=== PATIENT | female | born 1955 | race Caucasian/White ===

== ENCOUNTER 2022-09-29 14:48 | Outpatient (CLI) | payer MEDICARE, OTHER, SELFPAY ==
--- NOTE | 2022-09-29 15:00 | CRLHL7_ITS ---
For Patients: As a result of the Century Cures Act, medical imaging exams and procedure reports are released immediately into your electronic medical record. You may view this report before your referring provider. If you have questions, please contact your health care provider. INDICATION: ?OVARIAN CANCER, BLOATING COMPARISON: none TECHNIQUE: 2D luna scale and color Doppler images were acquired of the pelvis using a transabdominal and transvaginal approach. FINDINGS: Sonographic images demonstrate a normal size and smooth outer contour of the uterus. Uterus measures 5.0 cm in length by 1.7 cm in AP diameter by 2.9 cm in transverse dimension. The myometrium has a normal uniform echotexture. The endometrium measures 2.5 millimeters in thickness. Moderate fluid within the endometrial canal is noted. There is an echogenic nodular focus within the endometrium measuring 2 x 2 x 2 millimeters. The right ovary measures 2.1 x 1.1 x 1.1 cm in size and the left ovary measures 1.4 x 0.9 x 1.1 cm. The ovaries demonstrate normal arterial and venous blood flow on color Doppler analysis. There are no suspicious fluid collections within the cul-de-sac. Hypoechoic cyst is present within the right ovary measuring 1.6 x 1.1 x 1.2 cm. IMPRESSION: Moderate fluid in the endometrial canal with possible endometrial polyp measuring 2 millimeters. Hypoechoic right ovarian cyst measuring 1.6 cm. Further evaluation could include MRI with and without contrast or follow-up sonogram in 1 year. Dictated by Mike Dawson MD @ 10/02/2022 11:04:02 AM (Electronically Signed)
== END 2022-09-29 14:49 | disposition home or self-care (01) ==
LOC: US 14:55
PROVIDERS: PCP Nurse Practitioner Family; Visit Provider Nurse Practitioner Family
DX: R14.0 Abdominal distension (gaseous) (principal); N83.201 Unspecified ovarian cyst, right side
CPT/HCPCS: 76830; 76856

== ENCOUNTER 2022-10-04 17:03 | Emergency (ER) | payer MEDICARE, OTHER, SELFPAY ==
[2022-10-04] VITALS (10 sets, daily range): BP systolic 144–173; BP diastolic 83–96; PULSE 68–117; RESP 18; TEMP 36.4; O2SAT 97–99; BMI 26.8
[2022-10-04 17:36] LABS: Appearance Urine Clear (Clear); Bilirubin Urine Negative (Negative); Blood Urine Negative (Negative); Color Urine Yellow (Yellow); Glucose Urine Negative (Negative); Ketones Urine 1+ (Negative); Leukocyte Esterase Urine Negative (Negative); Nitrite Urine Negative (Negative); Protein Urine Negative (Negative); Urobilinogen Urine 0.2 (0.2-1.0)
--- NOTE | 2022-10-04 18:22 | ED_ITS ---
HPI - General Adult General Time Seen by Provider: 18:22 Date Seen: 10/04/22 Chief complaint: Back Injury/Pain Stated complaint: Back Pain,Possible Kidney Stone Time Seen by Provider: 10/04/22 18:22 Source: patient and RN notes reviewed Mode of arrival: ambulatory Limitations: no limitations History of Present Illness HPI narrative: Patient is a 67-year-old female coming in with some right-sided back pain that is been present for about 2 days. She had some tramadol that was prescribed to her at a visit in the beginning September. She went in for abdominal bloating, had an abnormal pelvic ultrasound showing a right ovarian cyst and fluid in the endometrial canal. She also had some left hip pain at that time which she relates to injuring it while lifting her 17-year-old dog that fell and could not get back up. This is not bothering her anymore. She states this right-sided pain feels reminiscent of a kidney stone years ago. She has had a history kidney stones, required 2 surgeries, states they could not do it with lithotripsy. She has been bothered by abdominal bloating that is progressively worse. Denies any nausea vomiting diarrhea or change in bowels. There is a strong history of ovarian cancer in her family. 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 She states she completed treatment and was told it resolved. No fevers or chills. Related Data Previous Rx's Medication Instructions Recorded tramadol 100 mg tablet 100 mg PO BID PRN pain #14 tabs 10/02/22 Allergies Allergy/AdvReac Type Severity Reaction Status Date / Time iodine Allergy Unknown Unknown Verified 10/04/22 19:01 Review of Systems Status of ROS: Reports: 10 or more systems reviewed and unremarkable except as noted in History and below [facility] Medical History (Updated 10/04/22 @ 20:07 by Sarah Prakash MD) History of abnormal cervical Papanicolaou smear (1989) History of basal cell carcinoma (BCC) (1989) History of colonic polyps History of compression fracture of spine History of depression History of hepatitis B virus infection (1975) History of stress test (09/11/20) Surgical History (Updated 09/24/22 @ 09:59 by Juliette Mas) History of basal cell carcinoma (BCC) excision (1989) History of carpal tunnel surgery of left wrist (1989) History of throat surgery (1957) Family History (Updated 09/24/22 @ 10:05 by Juliette Mas) Family/Other Colon cancer Social History (Updated 09/24/22 @ 10:06 by Juliette Mas) Narrative: Significant other, no children 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 smoker Rarely consumes alcohol Smoking Status: Never smoker How often do you have a drink containing alcohol: monthly or less How often do you have six or more drinks on one occasion: Never AUDIT-C Alcohol total score: 1 Non-prescribed substance use: denies use Exam Const: Vital Signs, click to edit/add: Vital Signs - 24 hr 10/04/22 17:17 10/04/22 19:07 10/04/22 19:10 Temperature 97.5 F L Pulse Rate 83 92 Pulse Rate [Right Pulse Oximeter] 117 H Respiratory Rate 18 Blood Pressure 155/87 H Blood Pressure [Ri ght Upper Arm] 173/96 H Pulse Oximetry 97 98 97 Oxygen Delivery Me thod Room Air 10/04/22 19:30 10/04/22 19:32 Temperature Pulse Rate 73 81 Pulse Rate [Right Pulse Oximeter] Respiratory Rate Blood Pressure 157/83 H Blood Pressure [Ri ght Upper Arm] Pulse Oximetry 98 98 Oxygen Delivery Me thod Documenting provider has reviewed patient's vital signs: yes Common normals: no apparent distress, average body habitus, oriented x3, no limitations, healthy appearing, alert and well nourished General appearance: cooperative, comfortable, well kempt and well developed HENMT: Common normals: normocephalic, head/scalp atraumatic, hearing grossly normal bilaterally and external ears normal Head and scalp: normocephalic and atraumatic External ear: external ears normal Eye: Common normals: PERRL, EOMs intact bilaterally, conjunctivae normal and no scleral icterus Conjunctiva: conjunctiva(e) normal Pupil: PERRL Neck & C-Spine: Common normals: full ROM, no lymphadenopathy, supple, no meningeal signs, no JVD and thyroid normal Thyroid: thyroid normal Resp: Common normals: normal respiratory effort (Mild kyphosis), no retractions, no use of accessory muscles and clear to auscultation bilaterally Effort & inspection: able to speak in complete sentences Auscultation: clear to auscultation bilaterally Cardio: Common normals: no JVD, regular rate, regular rhythm, S1 normal heart sound, S2 normal heart sound, no gallops, no clicks and no murmurs Rate: regular rate Rhythm: regular rhythm Heart sounds: S1 normal and S2 normal GI: Common normals: Normal to inspection, nondistended, normoactive bowel sounds present, soft to palpation, no hepatosplenomegaly and no masses Palpation: soft and no hepatosplenomegaly Other: Has some right mid abdominal tenderness to the right lower quadrant/pelvic region. No rebound or guarding at this time. Do not appreciate a mass just on palpation. Back & Pelvis: Common normals: thoracic and lumbar spine normal to inspection and no thoracic nor lumbar tenderness Other: On palpation of her back mid lumbar region on the right side there is a little tenderness when I palpate in the back below the ribs but above the iliac crest. It is more over a muscular area. Extremity: Other: No calf tenderness, no lower extremity edema. Neuro: Common normals: oriented x3 Sensorium/orientation: alert Meningeal signs: no meningeal signs Psych: Appearance: well kempt Course Course Hospital Course: We will obtain labs including comprehensive metabolic panel inflammatory markers, CBC. We will proceed with CT abdomen pelvis with IV contrast given her right-sided abdominal pain on my examination and the abnormal ultrasound findings done recently. I worry that this is intra-abdominal pathology. Doubt she has a surgical abdomen at this time but the CT and the labs will help us further delineate this. I think her right-sided back pain may just represent referred pain from something potentially abnormal with the pelvic organs. Will await our labs and imaging and guide therapy accordingly. Patient declines any need for pain management at this time. Reevaluation(s) Reevaluation #1: Reviewed findings on her CT report. We did discuss that this did not find anything with the pelvic organs but does not mean that she should proceed with getting the MRI of her pelvis for further evaluation of that. Reviewed the CT scan is not as sensitive for pelvic organs as the ultrasound, thus the need to continue for follow-up of that. Reviewed her normal labs. This time were going to discharge to home, try her on MiraLax, follow up in clinic to review possible motility issues of her GI system. Signs and symptoms for return to the ED reviewed. Time: 20:14 Vital Signs Vital signs: Initial Vital Signs Temperature 97.5 F L 10/04/22 17:17 Temperature Source Temporal Artery Scan 10/04/22 17:17 Pulse Rate 117 H 10/04/22 17:17 Respiratory Rate 18 10/04/22 17:17 Blood Pressure 173/96 H 10/04/22 17:17 Blood Pressure Mean 121 10/04/22 17:17 Blood Pressure Position Sitting 10/04/22 17:17 Pulse Oximetry 97 10/04/22 17:17 Oxygen Delivery Method 10/04/22 17:17 Vital Signs Temperature 97.5 F L 10/04/22 17:17 Pulse Rate 117 H 10/04/22 17:17 Respiratory Rate 18 10/04/22 17:17 Blood Pressure 173/96 H 10/04/22 17:17 Pulse Oximetry 97 10/04/22 17:17 Oxygen Delivery Method 10/04/22 17:17 Temperature 97.5 F L 10/04/22 17:17 Pulse Rate 81 10/04/22 19:32 Respiratory Rate 18 10/04/22 17:17 Blood Pressure 157/83 H 10/04/22 19:32 Pulse Oximetry 98 10/04/22 19:32 Oxygen Delivery Method 10/04/22 17:17 Medical Decision Making Lab Data Lab results reviewed: Yes I reviewed the patient's lab results Labs: Lab Results 10/04/22 10/04/22 10/04/22 Range/Units 17:27 18:45 18:45 WBC 6.09 (4.50-11.00) K/uL RBC 4.98 (4.00-5.20) m/uL Hgb 14.8 (12.0-16.0) gm/dL Hct 44.9 (33.0-51.0) % MCV 90 (80-100) fL MCH 30 (26-34) pg MCHC 33 (32-36) gm/dL RDW Coeff of Xi 12.8 (11.5-15.5) % Plt Count 300 (140-440) K/uL Neut % (Auto) 50.6 (42.0-72.0) % Lymph % (Auto) 35.6 (20-44) % [facility] % (Auto) 10.5 (0.0-11.0) % Eos % (Auto) 2.8 (0.0-7.0) % Baso % (Auto) 0.3 (0.0-3.0) % Neut # (Auto) 3.08 (1.7-7.0) K/uL Lymph # (Auto) 2.17 (0.90-2.90) K/uL [facility] # (Auto) 0.60 (0.00-0.90) K/UL Eos # (Auto) 0.17 (0.00-0.50) K/uL Baso # (Auto) 0.02 (0.00-0.30) K/uL Abs Immat Gran (auto) 0.01 (0.00-0.30) K/uL Imm/Tot Granulo (auto) 0.2 % Sodium 138 (135-149) mmol/L Potassium 4.0 (3.6-5.1) mmol/L Chloride 103 (96-114) mmol/L Carbon Dioxide 26 (20-32) mmol/L BUN 10 (7-30) mg/dL Creatinine 0.6 (0.5-1.5) mg/dL Estimated Creat Clear 39.75 Estimated GFR 99 ml/min Glucose 150 H (60-115) mg/dL Calcium 9.6 (8.4-10.6) mg/dL Total Bilirubin 0.5 (0.1-1.5) mg/dL AST 23 (12-35) U/L ALT 19 (4-35) U/L Alkaline Phosphatase 91 (40-150) U/L C-Reactive Protein < 0.5 L (0.5-1.0) mg/dL Total Protein 6.9 (6.0-8.3) g/dL Albumin 4.6 (3.3-5.0) g/dL Urine Color Yellow (Yellow) Urine Appearance Clear (Clear) Urine pH 7.0 (5.0-8.5) Ur Specific Franklin 1.020 (1.000-1.030) Urine Protein Negative (Negative) Urine Glucose (UA) Negative (Negative) Urine Ketones 1+ A (Negative) Urine Blood Negative (Negative) Urine Nitrite Negative (Negative) Urine Bilirubin Negative (Negative) Urine Urobilinogen 0.2 (0.2-1.0) Ur Leukocyte Esterase Negative (Negative) POC Creatinine (0.6-1.3) mg/dl 10/04/22 Range/Units 19:03 WBC (4.50-11.00) K/uL RBC (4.00-5.20) m/uL Hgb (12.0-16.0) gm/dL Hct (33.0-51.0) % MCV (80-100) fL MCH (26-34) pg MCHC (32-36) gm/dL RDW Coeff of Xi (11.5-15.5) % Plt Count (140-440) K/uL Neut % (Auto) (42.0-72.0) % Lymph % (Auto) (20-44) % [facility] % (Auto) (0.0-11.0) % Eos % (Auto) (0.0-7.0) % Baso % (Auto) (0.0-3.0) % Neut # (Auto) (1.7-7.0) K/uL Lymph # (Auto) (0.90-2.90) K/uL [facility] # (Auto) (0.00-0.90) K/UL Eos # (Auto) (0.00-0.50) K/uL Baso # (Auto) (0.00-0.30) K/uL Abs Immat Gran (auto) (0.00-0.30) K/uL Imm/Tot Granulo (auto) % Sodium (135-149) mmol/L Potassium (3.6-5.1) mmol/L Chloride (96-114) mmol/L Carbon Dioxide (20-32) mmol/L BUN (7-30) mg/dL Creatinine (0.5-1.5) mg/dL Estimated Creat Clear Estimated GFR ml/min Glucose (60-115) mg/dL Calcium (8.4-10.6) mg/dL Total Bilirubin (0.1-1.5) mg/dL AST (12-35) U/L ALT (4-35) U/L Alkaline Phosphatase (40-150) U/L C-Reactive Protein (0.5-1.0) mg/dL Total Protein (6.0-8.3) g/dL Albumin (3.3-5.0) g/dL Urine Color (Yellow) Urine Appearance (Clear) Urine pH (5.0-8.5) Ur Specific Franklin (1.000-1.030) Urine Protein (Negative) Urine Glucose (UA) (Negative) Urine Ketones (Negative) Urine Blood (Negative) Urine Nitrite (Negative) Urine Bilirubin (Negative) Urine Urobilinogen (0.2-1.0) Ur Leukocyte Esterase (Negative) POC Creatinine 0.7 (0.6-1.3) mg/dl Imaging Data CT scan - abdomen: Attestation: I have reviewed the pertinent imaging results. Radiologist's impression: Patient: DARIANA COLIN Facility:?[facility] Patient ID:?[id number] Site Patient ID:?[id number]. Site :?[id number] Study:?CT Abdomen/Pelvis W/ 67CC [id number]/2022 7:04:17 PM Ordering Physician:Doe Smith Final Report: INDICATION: Abdominal pain. TECHNIQUE: CT abdomen and pelvis acquired with intravenous contrast, 67 mL of Isovue 370. Coronal and sagittal reformats. COMPARISON: Pelvic ultrasound 09/29/2022. FINDINGS: The imaged lower chest is unremarkable. Normal liver contour. No suspicious hepatic lesion. The portal and hepatic veins are patent. No biliary dilatation. The gallbladder, pancreas, spleen, and adrenals are unremarkable. Symmetrical renal enhancement. No hydronephrosis bilaterally. Unremarkable bladder. Mild colonic diverticulosis without evidence of acute diverticulitis. Extensive colonic stool. Nondilated small bowel. Fecalized contents within the distal small bowel. No free air, free fluid, focal collection, or lymphadenopathy. Normal caliber abdominal aorta with mild atherosclerotic calcification. Diffuse demineralization. Mild L1 concave superior endplate deformity. IMPRESSION: 1. No acute or suspicious findings. 2. Extensive colonic stool with distal small bowel fecalization, suggesting hypomotility. Dictated by Jarvis Hammer MD @ 10/04/2022 8:00:47 PM Please note that all CT scans at this facility use dose modulation, iterative reconstruction, and/or weight-based dosing when appropriate to reduce radiation dose to as low as reasonably achievable. Dictated by: Jarvis Hammer MD @ 10/04/2022 20:00:49 (Electronic Signature) Critical Care Time Critical Care Time Critical Care Time: No Discharge Plan Discharge Clinical Impression: Bloated abdomen Patient Disposition: Home, Self-Care Condition: Stable Instructions: Constipation (ED) Additional Instructions: Need to follow up in clinic next week for re-evaluation. Your CT scan suggests that the bowel may have a motility problem which could be causing some constipation. This certainly could make you feel bloated. I am going to have you try MiraLax to start with, 17 g daily. This is sold [id number]. We can see how you are doing with this starting medication. You may need other workup and further evaluation, this is not something we would further workup in the ER tonight. If you do develop severe abdominal pain, have any associated fever vomiting with severe abdominal pain, do recommend re-evaluation in the ED. Activity Level: Activity as Tolerated Prescriptions: No Action tramadol 100 mg tablet 100 mg PO BID PRN (Reason: pain) Qty: 14 0RF Follow Up/Referrals: Rachael Bower TELEVISION REPAIRER [Primary Care Provider] - Stand Alone Forms: [employer] Info Instructions
--- NOTE | 2022-10-04 18:36 | CRLHL7_ITS ---
For Patients: As a result of the Century Cures Act, medical imaging exams and procedure reports are released immediately into your electronic medical record. You may view this report before your referring provider. If you have questions, please contact your health care provider. INDICATION: Abdominal pain. TECHNIQUE: CT abdomen and pelvis acquired with intravenous contrast, 67 mL of Isovue 370. Coronal and sagittal reformats. COMPARISON: Pelvic ultrasound 09/29/2022. FINDINGS: The imaged lower chest is unremarkable. Normal liver contour. No suspicious hepatic lesion. The portal and hepatic veins are patent. No biliary dilatation. The gallbladder, pancreas, spleen, and adrenals are unremarkable. Symmetrical renal enhancement. No hydronephrosis bilaterally. Unremarkable bladder. Mild colonic diverticulosis without evidence of acute diverticulitis. Extensive colonic stool. Nondilated small bowel. Fecalized contents within the distal small bowel. No free air, free fluid, focal collection, or lymphadenopathy. Normal caliber abdominal aorta with mild atherosclerotic calcification. Diffuse demineralization. Mild L1 concave superior endplate deformity. IMPRESSION: 1. No acute or suspicious findings. 2. Extensive colonic stool with distal small bowel fecalization, suggesting hypomotility. Dictated by Jarvis Hammer MD @ 10/04/2022 8:00:47 PM Please note that all CT scans at this facility use dose modulation, iterative reconstruction, and/or weight-based dosing when appropriate to reduce radiation dose to as low as reasonably achievable. Dictated by: Jarvis Hammer MD @ 10/04/2022 20:00:49 (Electronically Signed)
[2022-10-04 19:04] LABS: Creatinine, Point-of-Care* 0.7 mg/dl (0.6-1.3)
[2022-10-04 19:05] LABS: Basophils Absolute Auto 0.02 K/uL (0.00-0.30); Basophils Percent Auto 0.3 % (0.0-3.0); Eosinophils Absolute Auto 0.17 K/uL (0.00-0.50); Eosinophils Percent Auto 2.8 % (0.0-7.0); Hematocrit 44.9 % (33.0-51.0); Hemoglobin* 14.8 gm/dL (12.0-16.0); Immature Granulocytes Abs Auto 0.01 K/uL (0.00-0.30); Immature Granulocytes Pct Auto 0.2 %; Lymphocytes Absolute Auto 2.17 K/uL (0.90-2.90); Lymphocytes Percent Auto 35.6 % (20-44); Mean Corpuscular HGB Conc 33 gm/dL (32-36); Mean Corpuscular Hemoglobin 30 pg (26-34); Mean Corpuscular Volume 90 fL (80-100); Monocytes Percent Auto 10.5 % (0.0-11.0); Neutrophils Absolute Auto 3.08 K/uL (1.7-7.0); Neutrophils Percent Auto 50.6 % (42.0-72.0); Platelet Count* 300 K/uL (140-440); RDW Coefficient of Variation % 12.8 % (11.5-15.5); Red Blood Count 4.98 m/uL (4.00-5.20); White Blood Count* 6.09 K/uL (4.50-11.00)
[2022-10-04 19:06] LABS: Slide Review Reflex No
[2022-10-04 19:18] LABS: Albumin* 4.6 g/dL (3.3-5.0); Chloride* 103 mmol/L (96-114)
[2022-10-04 19:19] LABS: Sodium* 138 mmol/L (135-149)
[2022-10-04 19:21] LABS: Aspartate Amino Transferase* 23 U/L (12-35); Bilirubin Total* 0.5 mg/dL (0.1-1.5); Carbon Dioxide* 26 mmol/L (20-32); Creatinine* 0.6 mg/dL (0.5-1.5); Est. Creatinine Clearance* 39.75; Estimated Glomerular Filt Rate 99 ml/min; Total Protein* 6.9 g/dL (6.0-8.3)
[2022-10-04 19:22] LABS: Alanine Aminotransferase* 19 U/L (4-35); Alkaline Phosphatase* 91 U/L (40-150); Blood Urea Nitrogen* 10 mg/dL (7-30); Calcium* 9.6 mg/dL (8.4-10.6); Glucose* 150 mg/dL (60-115)
[2022-10-04 19:28] LABS: C Reactive Protein* < 0.5 mg/dL (0.5-1.0)
== END 2022-10-04 20:39 | disposition home or self-care (01) ==
PROVIDERS: Emergency Provider Family Medicine; PCP Nurse Practitioner Family
DX: R14.0 Abdominal distension (gaseous) (principal); K59.00 Constipation, unspecified; R79.89 Other specified abnormal findings of blood chemistry
CPT/HCPCS: 36415; 74177; 80053; 81003; 82565; 85025; 86140; 99284; Q9967

== ENCOUNTER 2022-10-15 12:40 | Outpatient (CLI) | payer MEDICARE, OTHER, SELFPAY ==
--- NOTE | 2022-10-15 13:00 | CRLHL7_ITS ---
For Patients: As a result of the Century Cures Act, medical imaging exams and procedure reports are released immediately into your electronic medical record. You may view this report before your referring provider. If you have questions, please contact your health care provider. Indication: Abnormal pelvic ultrasound. Hypoechoic lesion in the right ovary measuring 16 millimeters. Fluid within the endometrial canal, with a questionable endometrial polyp measuring 2 mm. Technique: MRI of the pelvis without and with intravenous gadolinium. Three plane localizer, 3 plane SSFP, axial T1 weighted, axial T2 weighted with fat suppression, axial sagittal T2 weighted haste, axial T2 weighted with fat suppression, sagittal T2 weighted with fat suppression, and 3 plane pre and post contrast T1 weighted fat-suppressed VIBE pulse sequences were obtained. 15 cc of IV dotarem. Comparison: Pelvic ultrasound, 09/29/2022. CT of the abdomen and pelvis, 10/04/2022. Findings: There is no adnexal mass. There is no free fluid in the pelvis, pelvic sidewall or inguinal lymphadenopathy, or evidence for carcinomatosis. The left ovary measures 16 x 11 millimeters, image 14, series 8. The right ovary is seen best on image 10, series 9, measuring 18 millimeters in AP dimension, and 2 centimeters in craniocaudad dimension. It is also seen on image 17 of series 8. No endometrial or myometrial masses visualized. Urinary bladder is normal. There is no mucosal hyper enhancement or mural stratification within the small bowel or colon. Normal marrow signal intensity. Ventral wall abdominal or umbilical hernia containing fat. No evidence for enteric compromise. Impression: 1. No adnexal mass. 2. Filling defect in the endometrial canal on the recent pelvic ultrasound is not well seen by MRI. Does the patient have a history of postmenopausal bleeding? 3. There is no pelvic lymphadenopathy, ascites, or evidence on MRI for carcinomatosis. Dictated by Uri Dunacn MD @ 10/17/2022 1:40:40 PM (Electronically Signed)
== END 2022-10-15 12:41 | disposition home or self-care (01) ==
LOC: MRI 12:41
PROVIDERS: PCP Nurse Practitioner Family; Visit Provider Nurse Practitioner Family
DX: N94.9 Unspecified condition associated with female genital organs and menstrual cycle (principal)
CPT/HCPCS: 72197; A9575

== ENCOUNTER 2022-11-08 15:03 | Emergency (ER) | payer MEDICARE, OTHER, SELFPAY ==
[2022-11-08 15:12] VITALS: BP 161/103; PULSE 92; RESP 18; TEMP 36.2; O2SAT 97; BMI 26.0
--- NOTE | 2022-11-08 15:24 | CRLHL7_ITS ---
For Patients: As a result of the Century Cures Act, medical imaging exams and procedure reports are released immediately into your electronic medical record. You may view this report before your referring provider. If you have questions, please contact your health care provider. Indication: Constipation. Technique: Abdomen 3 view. Comparison: Lumbar radiographs November 06, 2022 and pelvic MRI and abdominal CT of September 2022. Findings: Non-obstructive bowel gas pattern where visualized. Moderate volume colonic stool. No free air. No abnormal abdominal calcifications. Curvature of the lumbar spine, convex to the right. Compression fracture of the L1 vertebral body. Likely height loss of the T12 vertebral body. Impression: Nonobstructive bowel gas pattern. Moderate volume colonic stool. Dictated by Mike Anna MD @ 11/08/2022 3:55:15 PM (Electronically Signed)
--- NOTE | 2022-11-08 15:55 | ED_ITS ---
HPI - General Adult General Chief complaint: Constipation Stated complaint: Constipation Time Seen by Provider: 11/08/22 15:17 Source: patient Mode of arrival: ambulatory Limitations: no limitations History of Present Illness HPI narrative: 67-year-old female coming in today concerned about constipation. States that she has been having very tiny but soft bowel movements for about a month, however in the last 4 days she has had no stool output. She states that she feels very full and bloated. No fevers or chills. No nausea or vomiting. She states that she has very little during the day and that is not necessarily new for her, she does eat foods high are high in fiber such as fruits and vegetables. She does take MiraLax 1 scoop daily in the morning and herbal laxatives in the evening. She purchased an enema this morning but the nurse line told her she should come in for an evaluation so she did not use it. She is passing gas daily. She does have a prescription for tramadol for a recent L1 compression fracture however, she only took it twice and has not taken it since. Related Data Home Medications Medication Instructions Recorded Confirmed nino natural laxative DAILY 11/08/22 polyethylene glycol 3350 17 gram 17 g PO DAILY 11/08/22 11/08/22 oral powder packet (Miralax) Previous Rx's Medication Instructions Recorded tramadol 100 mg tablet 100 mg PO BID PRN pain #30 tabs 11/04/22 Allergies Allergy/AdvReac Type Severity Reaction Status Date / Time iodine Allergy Unknown Unknown Verified 10/04/22 19:01 Review of Systems Status of ROS: Reports: 10 or more systems reviewed and unremarkable except as noted in History and below [facility] Medical History History of abnormal cervical Papanicolaou smear (1989) History of basal cell carcinoma (BCC) (1989) History of colonic polyps History of compression fracture of spine History of depression History of hepatitis B virus infection (1975) History of stress test (09/11/20) Surgical History History of basal cell carcinoma (BCC) excision (1989) History of carpal tunnel surgery of left wrist (1989) History of throat surgery (1957) Family History Family/Other Colon cancer Social History Narrative: Significant other, no children 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 Alert and oriented. Answers questions appropriately. Mood and affect are appropriate. Patient speaks in full sentences without needing to catch her breath. HEENT: Normocephalic atraumatic. Pupils are equally round reactive to light. Extraocular muscles are intact. Conjunctivae are moist without any icterus noted. Moist mucous membranes. Abdomen: Soft and nontender nondistended with normal bowel sounds. No guarding or rebound. No masses or organomegaly appreciated. Extremities: Bilateral lower extremities are without edema. Skin: Well perfused without any obvious rashes. Const: Vital Signs, click to edit/add: Vital Signs - 24 hr 11/08/22 15:12 Temperature 97.1 F L Pulse Rate [Right Pulse Oximeter] 92 Respiratory Rate 18 Blood Pressure [Ri ght Upper Arm] 161/103 H Pulse Oximetry 97 Oxygen Delivery Me thod Room Air Course Course Hospital Course: Flat and upright abdominal x-ray were done, read by me, showing no evidence of obstruction. We discussed options including changing her oral regimen, however, patient really thinks that an enema done in the ER would be her best option she does not want to do that by herself at home. Fleets enema administered in the ER today with good results. Patient feeling better and requesting to go home. Vital Signs Vital signs: Initial Vital Signs Temperature 97.1 F L 11/08/22 15:12 Temperature Source Temporal Artery Scan 11/08/22 15:12 Pulse Rate 92 11/08/22 15:12 Respiratory Rate 18 11/08/22 15:12 Blood Pressure 161/103 H 11/08/22 15:12 Blood Pressure Mean 122 11/08/22 15:12 Blood Pressure Position Sitting 11/08/22 15:12 Pulse Oximetry 97 11/08/22 15:12 Oxygen Delivery Method 11/08/22 15:12 Vital Signs Temperature 97.1 F L 11/08/22 15:12 Pulse Rate 92 11/08/22 15:12 Respiratory Rate 18 11/08/22 15:12 Blood Pressure 161/103 H 11/08/22 15:12 Pulse Oximetry 97 11/08/22 15:12 Oxygen Delivery Method 11/08/22 15:12 Temperature 97.1 F L 11/08/22 15:12 Pulse Rate 92 11/08/22 15:12 Respiratory Rate 18 11/08/22 15:12 Blood Pressure 161/103 H 11/08/22 15:12 Pulse Oximetry 97 11/08/22 15:12 Oxygen Delivery Method 11/08/22 15:12 Medical Decision Making MDM Narrative Medical decision making narrative: Constipation status post treatment. Her recommend increasing MiraLax to 2 scoops daily. Adding docusate daily. Patient had no other questions Imaging Data Abdominal x-ray: Attestation: I have reviewed the pertinent imaging results. Radiologist's impression: Abdomen 3 view. Comparison: Lumbar radiographs November 06, 2022 and pelvic MRI and abdominal CT of September 2022. Findings: Non-obstructive bowel gas pattern where visualized. Moderate volume colonic stool. No free air. No abnormal abdominal calcifications. Curvature of the lumbar spine, convex to the right. Compression fracture of the L1 vertebral body. Likely height loss of the T12 vertebral body. Impression: Nonobstructive bowel gas pattern. Moderate volume colonic stool. Discharge Plan Discharge Clinical Impression: Constipation Patient Disposition: Home, Self-Care Condition: Improved Additional Instructions: Recommend increasing your MiraLax to 2 scoops daily until daily bowel movement achieved. Can also add 2 tablets of docusate daily-can be purchased [id number]. Increase fluid intake. Follow-up with your primary care provider as needed. Prescriptions: No Action polyethylene glycol 3350 [Miralax] 17 gram powder in packet 17 g PO DAILY nino natural laxative DAILY tramadol 100 mg tablet 100 mg PO BID PRN (Reason: pain) Qty: 30 0RF Follow Up/Referrals: Rachael Bower CNP [Primary Care Provider] - Stand Alone Forms: MyHealth Info Instructions
--- NOTE | 2022-11-08 16:12 | ED.NURSE ---
Fleet enema admin SC
== END 2022-11-08 17:05 | disposition home or self-care (01) ==
LOC: ED 17:04
PROVIDERS: Emergency Provider Family Medicine; PCP Nurse Practitioner Family
DX: K59.00 Constipation, unspecified (principal)
CPT/HCPCS: 74019; 99283; 99284

== ENCOUNTER 2023-01-14 10:45 | Outpatient (RCR) | payer MEDICARE, OTHER, SELFPAY ==
--- NOTE | 2022-10-02 12:04 | PT.OPEX ---
PT [place] Outpatient Eval PT [facility] Outpatient Eval Start: 10/02/22 10:02 Freq: Status: Active Protocol: Document 10/02/22 10:03 ARR (Rec: 10/02/22 11:16 ARR [id number]) E-signed By Alesia Crowley DPT Physical Therapy Outpatient Evaluation Insurance Information Recert Due Date 12/31/22 Insurance Name Medicare B Medical Diagnosis M25.552 pain in left hip Treating Diagnosis M51.26 lumbar disc displacement R26.2 difficulty walking M25.551 pain in R hip Referring MD Rachael Bower, [employer] MEMBER ([facility]) Subjective Subjective -Onset of pain 2 weeks ago doing side planks then something happened. Hasn't exercises in 2 weeks due to this pain. Then 1 week ag today dog passed and had to pick 50# dog and this made it worse. -Location of pain: R sided hip and middle low back area -Increases in pain: lifting R UE up overhead to pull a shade down, getting up from the toilet will feel a cramp, can' t sleep at night, standing upright -Decreases in pain: icy hot, laying flat on infrared pad then when trying to get up increases pain again, bending forward -Goals: return to exercise 6 days per week using Chromatin track 30-60 min, strength training 3x/wk, walking dog most days -PMHx: tachycardia, hearing loss, osteoporosis, basal cell carcinoma 1989, CTS L wrist, Notes fx of T9 and 10. Precautions Treatment Precautions/Contraindications Possible current ovarian CA Objective Other/Pertinent Objective Eval 10/02 Posture: loss of lumbar lordosis, inc'd TS kyhposis, slight R lateral shift, inc'd hip/foot ER on R Palpation: TTP into R LS paraspinals with allodynia SLS (30 sec): unable Gait: antalgic gait RANGE OF MOTION: Lumbar ROM: -Flx: fingertips to ankles no changes in pain -Ext: 75% limitation in movement with pain -R Rot: pain with 50% limitation -L Rot: no pain 25% limitation -R Sidebend: worst pain with 3 inches from jt line -L Sidebend: pain with 3 inches from jt line LE ROM (R/L): -Hip ER90: 70 L/60 R -Hip IR90: 10 L/R -Hip flex: >120 bilat -Hip ext sidelying : limited R / NT L STRENGTH: -Glut medius: 2+ R SPECIAL TESTS: LE Flexibility (R/L) -Hamstring: + bilat -Piriformis: + bilat -Rehan Test:+ R sidelying Hip (R/L): -DONNY: neg bilat -Hip Scour: neg bilat -FADIR: neg bilat Other: -CPA hypmobile L1-5 -Supine SLR neg bilat -Seated slump neg bilat Functional Test Performed & Score CONNER 27/50 Assessment Assessment/Impression Pt is a 67 yo female who presents with concerns of R sided low back pain. Signs and symptoms likely indicating / consistent with discogenic injury and underlying lumbar stenosis with R lateral shift and pain flares with all closing down movements of lumbar spine including extension, R lateral flexion, and R rotation. Patient also has notable objective findings including severe pain that limited tolerance for full completion of evaluation also likely contributing to the problem. Patient is a good candidate for skilled therapy to target deficits described above. Skilled PT intervention is necessary for use of therapeutic exercise manual therapy, neuromuscular re- education, gait training, and therapeutic activity. Functional impairments include difficulty with: sleeping at night, walking, standing. See appropriate sections of PT eval for complete list of goals and POC. D/C plan and criteria is for pt to achieve the goals as listed below or until max rehab potential is met. Pt was agreeable with plan of care and goals established. 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 3) Pt will report at least 80% improvement in pain/symptoms since start of PT for return to PLOF 4) Pt will demonstrate CONNER score <15/50 for return to PLOF 5) Pt will return to working out, use of nordic track, and walking without pain flare Treatment Plan/Direct Interventions Electrical Stimulation,Gait Training,Joint Mobilization, Manual Therapy,Neuromuscular Re-ed,Self-Care/Home Management,Therapeutic Activities,Therapeutic Exercises,Traction (Mechanical ),Ultrasound Frequency/Duration 2x/wk for total of 14 visits in 90 days Evaluation Billing Untimed Code Treatment Minutes 30 Complexity Moderate Certification Information Initial Certification Date 10/02/22 Ending Certification Date 12/31/22 Provider Signature Shows Agreement With POC & Medical Necessity Physician Signature & Date Requested Please Sign/Date Here Physician Comment/Change : Physician NPI Number #
== END 2023-01-14 12:05 | disposition home or self-care (01) ==
PROVIDERS: PCP Nurse Practitioner Family; Visit Provider Nurse Practitioner Family
DX: M25.552 Pain in left hip (principal); Z51.89 Encounter for other specified aftercare
CPT/HCPCS: 97032; 97110; 97112; 97140; 97162; 97535

== ENCOUNTER 2024-07-04 14:06 | Outpatient (CLI) | payer MEDICARE, OTHER, SELFPAY ==
--- OUTSIDE RECORDS SUMMARY | 2024-07-04 14:14 | XMS_ITS ---
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 Procedure Estimated Blood Loss Check Surgery Details section. Procedure Findings Check Surgery Details section. Procedure Specimens Taken Check Surgery Details section.
--- OUTSIDE RECORDS SUMMARY | 2024-07-04 14:14 | XMS_ITS | Referral Summary ---
Author Organization [facility] Address [address] [place] [address] Care Team Providers Care Sheet Metal Former Name Role Phone Elsewhere, Pcp Primary Care Provider Unavailabl e Source Comments Patient records contain information from all sites at [facility]. For routine questions regarding patient records, call [phone] during business hours, M-F 8:00 AM - 5:00 PM Central Time. Record requests for emergency care only can be directed to [phone] at any time.[facility] Allergies Active Allergy Reactions Criticality Noted Date Comments Iodine Itching 07/08/2021 Topical iodine only Medications Medication Sig Dispensed Refills Start Date End Date Status co-enzyme Q-10 (CO Q-10) 100 mg capsule Take 1 capsule by mouth daily. 10/05/2019 Active turmeric 400 mg capsule Take 1 capsule by mouth daily. 10/05/2019 Active metoprolol tartrate (LOPRESSOR) 25 mg tablet Take 25 mg by mouth 2 (two) times a day as needed. 02/28/2022 Active ascorbate calcium-bioflavonoid 500-200 mg tablet Take 1 tablet by mouth as needed. 10/05/2019 Active traMADoL (ULTRAM) 50 mg tablet Take 100 mg by mouth as needed. 10/02/2022 Active cyanocobalamin, vitamin B-12, (Vitamin B-12) 1,000 mcg/mL drops Take by mouth daily. Active cholecalciferol, vitamin D3, (VITAMIN D3 ORAL) Take by mouth daily. Liquid version Active zinc 10 mg/mL (elemental) oral solution Take 7.5 mL by mouth daily. Active aspirin [address] tablet Take 81 mg by mouth as needed for pain. Active pantoprazole (PROTONIX) 40 mg EC tabletIndications:Fat igue,Hypogammaglobuli nemia (HCC),Pain Generalized Abdominal,Osteoporosi s Take 1 tablet (40 mg total) by mouth daily. 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 Polyp Colon 07/23/2021 PreDiabetes 07/26/2020 Immunizations Name Administration Dates Next Due Influenza high dose QV(65 ye ars or older) (PF) 08/04/2022,08/01/2021 Influenza, Injectable, Mdck, Quadrivalent 08/23/2019 Influenza, Injectable, Quadrivalent 07/18/2020 Influenza, Unspecified 08/23/2019 PCV20 11/25/2022(Deferred: Other - would like to recieve) RZV (SHINGRIX) 11/25/2022(Deferred: Other - would like to recieve) Tdap 11/25/2022(Deferred: Other - up to date) Social History Tobacco Use Types Packs/Day Years Used Date Smoking Tobacco: Never Smokeless Tobacco: Never Tobacco Cessation:Counseling Given: Not Answered Alcohol Use Standard Drinks/Week Comments Not Currently 0 (1 standard drink = 0.6 oz pur e alcohol) Humiliation, Afraid, Rape, and Kick questionnair e Answer Date Recorded Within the last year, have y ou been afraid of your partner or ex-partner? No 11/25/2022 Within the last year, have y ou been humiliated or emotionally abused in other ways by your partner or ex-partner? No Within the last year, have y ou been kicked, hit, slapped, or otherwise physically hurt by your partner or ex-partner? No 11/25/2022 Within the last year, have y ou been raped or forced to have any kind of sexual activity by your partner or ex-partner? No 11/25/2022 Social Connection and Isolat ion Panel [NHANES] Answer Date Recorded In a typical week, how many times do you talk on the phone with family, friends, or neighbors? More than three times a week 11/25/2022 How often do you get togethe r with friends or relatives? Twice a week 11/25/2022 How often do you attend chur or pentecostal services? Never 11/25/2022 Do you belong to any clubs o r organizations such as mandaen groups, unions, fraternal or athletic groups, or school groups? Yes 11/25/2022 How often do you attend meet ings of the clubs or organizations you belong to? More than 4 times per year 11/25/2022 Are you , , di vorced, , never , or living with a partner? Living with partner 11/25/2022 AUDIT-C Answer Date Recorded Q1: How often do you have a drink containing alc ohol? Monthly or less 11/25/2022 Q2: How many drinks containi ng alcohol do you have on a typical day when you are drinking? 1 or 2 11/25/2022 Q3: How often do you have si x or more drinks on one occasion? Never 11/25/2022 Overall Financial Resource Strain (CARDIA) Answe r Date Recorded How hard is it for you to pa y for the very basics like food, housing, medical care, and heating? Not hard at all 11/25/2022 PHQ-2 Answer Date Recorded PHQ-2 Score 0 11/25/2022 [facility] - Occupational Stress Questionnaire Answer Date Recorded Do you feel stress - tense, restless, nervous, or anxious, or unable to sleep at night because your mind is troubled all the time - these days? Only a little 11/25/2022 Exercise Vital Sign Answer Date Recorde d On average, how many days pe r week do you engage in moderate to strenuous exercise (like a brisk walk)? 6 days 11/25/2022 On average, how many minutes do you engage in exercise at this level? 60 min 11/25/2022 Hunger Vital Sign Answer Date Recorded Within the past 12 months, y ou worried that your food would run out before you got the money to buy more. Never true 11/25/19 Within the past 12 months, t he food you bought just didn't last and you didn't have money to get more. Never true 11/25/2022 PRAPARE - Transportation Answer Date Re corded In the past 12 months, has l ack of transportation kept you from medical appointments or from getting medications? No 10/28 In the past 12 months, has l ack of transportation kept you from meetings, work, or from getting things needed for daily living? No 11/25/2022 Housing Stability Vital Sign Answer e Recorded In the last 12 months, was t here a time when you were not able to pay the mortgage or rent on time? No 11/25/2022 In the last 12 months, how many places have you lived? 1 11/25/2022 In the last 12 months, was t here a time when you did not have a steady place to sleep or slept in a detention (including now)? No 11/25/2022 Nutrition Answer Date Recorded Nutrition: EVOO Fat Source Yes 11/25 On average, how many serving s of fruits and vegetables do you eat per day (serving size is equal to 1 cup or approximately the size of a tennis ball)? 8 or more 11/25/2022 Dental Answer Date Recorded Dental: Regular Dentist Yes 11/04/19 Employment Answer Date Recorded Employment status Retired 11/25/2022 Education Answer Date Recorded What is the highest level of school you have completed or the highest degree you have received? Bachelor's degree (e.g., BA, AB, BS) 07/08/2021 Sex and Gender Information Value Date Recorded Sex Assigned at Female 07/08/2021 8:34 AM CDT Gender Identity Female 07/08/2021 8:34 AM CDT Sexual Orientation Straight 07/08/2021 8: 34 AM CDT Last Filed Vital Signs Vital Sign Reading Time Taken Comments Blood Pressure 154/78 01/16/2023 7:57 AM CDT Pulse 71 01/16/2023 7:57 AM CDT Temperature 36.4 ??C (97.5 ??F) 01/01/2023 9:28 AM CS T Respiratory Rate 13 11/26/2022 2:45 PM GUSSET RIPPER Oxygen Saturation 99% 11/26/2022 2:45 PM GUSSET RIPPER Inhaled Oxygen Concentration - - Weight 61.3 kg (135 lb 2.3 oz) 05/15/2023 12:55 PM CDT Height 150.9 cm (4' 11.41) 05/21/2023 2:18 PM C DT Body Mass Index 26.92 05/15/2023 12:55 PM CDT Plan of Treatment Upcoming Encounters Date Type Department Care Team (Latest Contact Info) Description 08/18/2024 2:00 PM CDT Clinical Communication Virtual Review in [place], [place] [address] [place] [phone] 08/19/2024 2:30 PM CDT Office Visit Division of Allergic Diseases in [place], [place] [address] [place] [phone] Flex Nettles M.D. [address] [place] [phone] Procedures Procedure Name Priority Date/Time Associated Diagnosis Comments COLONOSCOPY Routine 11/26/2022 12:41 PM GUSSET RIPPER Constipation Bloating Abdominal Change In Bowel Habit Screening Cancer Colon COMPREHENSIVE METABOLIC PANEL, S/P Routine 11/25/2022 10:26 AM GUSSET RIPPER Pain Generalized Abdominal Bloating Abdominal Osteoporosis Constipation Cancer Colon Family History Fatigue Loss Weight HCV AB SCRN W/REFLEX TO HCV PCR, S Routine 07/08/2021 10:37 AM CDT Hepatitis B from Last 3 Months or Most Recently Relevant to Health Maintenance Results * (ABNORMAL) Comprehensive Metabolic Panel (11/25/2022 10:26 AM GUSSET RIPPER) Potassium, S 4.3 3.6 - 5.2 mmol/L 11/25/2022 11:26 AM GUSSET RIPPER DTL Sodium, S 141 135 - 145 mmol/L 11/25/2022 11:26 AM GUSSET RIPPER DTL Chloride, S 104 98 - 107 mmol/L 11/25/2022 11:26 AM GUSSET RIPPER DTL Bicarbonate, S 26 22 - 29 mmol/L 11/25/2022 11:26 AM GUSSET RIPPER DTL Anion Gap 11 7 - 15 11/25/2022 11:26 AM GUSSET RIPPER DTL BUN (Blood Urea Nitrogen), S 10 6 - 21 mg/dL 11/25/2022 11:26 AM GUSSET RIPPER DTL Creatinine 0.66 0.59 - 1.04 mg/dL 11/25/2022 11:26 AM GUSSET RIPPER DTL Estimated GFR (eGFR) >90 >=60 mL/min/BS A 11/25/2022 11:26 AM GUSSET RIPPER DTL Comment: Estimated GFR calculated using the 2020 CKD_EPI creatinine equation. Calcium, Total, S 9.6 8.8 - 10.2 mg/dL 11/25/2022 11:26 AM GUSSET RIPPER DTL Glucose, S 92 70 - 140 mg/dL 11/25/2022 11:26 AM GUSSET RIPPER DTL Protein, Total, S 6.1(L) 6.3 - 7.9 g/dL 11/25/2022 11:26 AM GUSSET RIPPER DTL Albumin, S 4.4 3.5 - 5.0 g/dL 11/25/2022 11:26 AM GUSSET RIPPER DTL Aspartate Aminotransferase (AST), S 17 8 - 43 U/L 11/25/2022 11:26 AM GUSSET RIPPER DTL Alkaline Phosphatase, S 114(H) 35 - 104 U/L 11/25/2022 11:26 AM GUSSET RIPPER DTL Alanine Aminotransferase (ALT), S 12 7 - 45 U/L 11/25/2022 11:26 AM GUSSET RIPPER DTL Bilirubin, Total, S 0.8 <=1.2 mg/dL 11/25/2022 11:26 AM GUSSET RIPPER DTL Blood (Blood, Venous) 11/25/2022 10:26 AM GUSSET RIPPER 11/25/2022 11:06 AM GUSSET RIPPER Narrative Authorizing Provider Result Svitlana Camarena M.D. LAB BLOOD ADD-ON [facility] [address] [place] [address], [facility] DTL [facility] [address] [place] [address] * HCV Ab Scrn w/Reflex to HCV PCR, Serum (07/08/2021 10:37 AM CDT) HCV Ab Screen, S Negative Negative 07/08/2021 9:39 PM CDT [facility] Comment:Sfomap-yn-ibdtww rat io is <1.00. Blood (Blood, Venous) 07/08/2021 10:37 AM CDT 07/08/2021 2:56 PM CDT Cade Flores M.D. LAB MICROBIOLO GY - BLOOD ORDERABLES [facility] [address] [place] [address] [facility] Dept. of Laboratory Medicine and Pathology [address] [place] [id number] from Last 3 Months or Most Recently Relevant to Health Maintenance Advance Directives For more information, please contact: [phone] Documents on File Type Date Recorded Patient Induction Furnace Operator Expl anation Advance Directives 12/01/2022 10:57 AM Efrain Zhu HCPOA/ADVOCATE/AGENT/REP RESENTATIVE/SURROGATE Healthcare Agents on File Name Relationship Healthcare Agent Relationship Communication Efrainkrishan Cason Significant Other Health Care Agent Yarelis Zhu Sister First Alternate Health Care Agent Care Teams Sheet Metal Former Relationship Specialty Start Date End Date Elsewhere, Pcp PCP - General Internal Medicine 08/11/23
--- OUTSIDE RECORDS SUMMARY | 2024-07-04 14:14 | XMS_ITS | Clinical Summary ---
Author Organization [facility] Address [address] [place] [address] Care Team Providers Care Cash Applications Associate Name Role Phone Elsewhere, Pcp Primary Care Provider Unavailabl e Source Comments Patient records contain information from all sites at [facility]. For routine questions regarding patient records, call [phone] during business hours, M-F 8:00 AM - 5:00 PM Central Time. Record requests for emergency care only can be directed to [phone] at any time.[facility] Allergies Active Allergy Reactions Criticality Noted [...] Tdap 11/25/2022(Deferred: Other - up to date) Family History Medical History Relation Name Comments Colon cancer Brother 1 iza Colon polyps Brother 1 iza Colon polyps Brother 2 gene Lung cancer Brother 3 [facility] Pancreatic cancer Father li Colon polyps Sister 1 yarelis Colon polyps Sister 2 ani Relation Name Status Comments Brother 1 iza Brother 2 gene Brother 3 joon Father li Sister 1 yarelis Sister 2 ani Social History Tobacco Use Types Packs/Day Years [...] 11/25/2022 How often do you attend chur ch or advent services? Never 11/25/2022 Do you belong to any clubs o r organizations such as hinduism groups, unions, fraternal or athletic groups, or [...] Answer Date Recorded PHQ-2 Score 0 11/25/2022 [facility] [place] of Occupat ional Health - Occupational Stress [...] place to sleep or slept in a correction (including now)? No 11/25/2022 Nutrition Answer Date [...] T Respiratory Rate 13 11/26/2022 2:45 PM ARCHITECT NAVAL Oxygen Saturation 99% 11/26/2022 2:45 PM ARCHITECT NAVAL Inhaled Oxygen Concentration - - Weight 61.3 kg (135 lb 2.3 oz) 05/15/2023 12:55 PM CDT Height 150.9 cm (4' 11.41) 05/21/2023 2:18 PM C DT Body Mass Index 26.92 05/15/2023 12:55 PM CDT Plan of Treatment Upcoming Encounters Date Type Department Care Team (Latest Contact Info) Description 08/18/2024 2:00 PM CDT Clinical Communication Virtual Review in [place], [place] [address] [place] [phone] 08/19/2024 2:30 PM CDT Office Visit Division of Allergic Diseases in [place], [place] [address] [place] [phone] Flex Nettles M.D. [address] [place] [phone] Health Maintenance Due Date Last Done Comments CT Colonography 1955 Cologuard 1955 DTaP,Tdap,and Td Vaccines (1 - Tdap) 1975 Zoster Vaccines (1 of 2) 2006 Pneumococcal vaccine (65+ ye ars) (1 of 1 - PCV) 2021 Mammogram 05/21/2023 05/21/2022 (Perf ormed elsewhere) Depression Screening (Annual PHQ-2) 10/26/2023 Fall Risk Screen (Annual) 10/26/2023 Fasting Glucose for Diabetes Screening 11/25/2023 11/25/2022 COVID-19 Vaccine (2022-2 4 season) 2024 07/28/2023, 02/25/2023, 08/04/2022, Additional history exists Influenza Vaccine (#1) 2024 , 08/04/2022, 08/01/2021, Additional history exists Lipid (Cholesterol) Screening 09/16/2024 09/16/2023, 03/06/2022 Colonoscopy 11/26/2027 11/26/2022, 11/26/2022 Colorectal Cancer Surveillance 11/26/2027 Hepatitis C Screening Completed 07/08/2021 Bone Density Scan (Osteoporo sis Screen) Discontinued 11/25/2022 Procedures Procedure Name Priority Date/Time Associated Diagnosis Comments COLONOSCOPY Routine 11/26/2022 12:41 PM ARCHITECT NAVAL Constipation Bloating Abdominal Change In Bowel Habit Screening Cancer Colon COMPREHENSIVE METABOLIC PANEL, S/P Routine 11/25/2022 10:26 AM ARCHITECT NAVAL Pain Generalized Abdominal Bloating Abdominal Osteoporosis Constipation Cancer Colon Family History Fatigue Loss Weight HCV AB SCRN W/REFLEX TO HCV PCR, S Routine 07/08/2021 10:37 AM CDT Hepatitis B from Last 3 Months or Most Recently Relevant to Health Maintenance Results * (ABNORMAL) Comprehensive Metabolic Panel (11/25/2022 10:26 AM ARCHITECT NAVAL) Potassium, S 4.3 3.6 - 5.2 mmol/L 11/25/2022 11:26 AM ARCHITECT NAVAL DTL Sodium, S 141 135 - 145 mmol/L 11/25/2022 11:26 AM ARCHITECT NAVAL DTL Chloride, S 104 98 - 107 mmol/L 11/25/2022 11:26 AM ARCHITECT NAVAL DTL Bicarbonate, S 26 22 - 29 mmol/L 11/25/2022 11:26 AM ARCHITECT NAVAL DTL Anion Gap 11 7 - 15 11/25/2022 11:26 AM ARCHITECT NAVAL DTL BUN (Blood Urea Nitrogen), S 10 6 - 21 mg/dL 11/25/2022 11:26 AM ARCHITECT NAVAL DTL Creatinine 0.66 0.59 - 1.04 mg/dL 11/25/2022 11:26 AM ARCHITECT NAVAL DTL Estimated GFR (eGFR) >90 >=60 mL/min/BS A 11/25/2022 11:26 AM ARCHITECT [employer]AL DTL Comment: Estimated GFR calculated using the 2020 CKD_EPI creatinine equation. Calcium, Total, S 9.6 8.8 - 10.2 mg/dL 11/25/2022 11:26 AM ARCHITECT NAVAL DTL Glucose, S 92 70 - 140 mg/dL 11/25/2022 11:26 AM ARCHITECT NAVAL DTL Protein, Total, S 6.1(L) 6.3 - 7.9 g/dL 11/25/2022 11:26 AM ARCHITECT NAVAL DTL Albumin, S 4.4 3.5 - 5.0 g/dL 11/25/2022 11:26 AM ARCHITECT NAVAL DTL Aspartate Aminotransferase (AST), S 17 8 - 43 U/L 11/25/2022 11:26 AM ARCHITECT NAVAL DTL Alkaline Phosphatase, S 114(H) 35 - 104 U/L 11/25/2022 11:26 AM ARCHITECT NAVAL DTL Alanine Aminotransferase (ALT), S 12 7 - 45 U/L 11/25/2022 11:26 AM ARCHITECT NAVAL DTL Bilirubin, Total, S 0.8 <=1.2 mg/dL 11/25/2022 11:26 AM ARCHITECT NAVAL DTL Blood (Blood, Venous) 11/25/2022 10:26 AM ARCHITECT NAVAL 11/25/2022 11:06 AM ARCHITECT NAVAL Asael Camarena [place] [address], [place] [address] * HCV Ab Scrn w/Reflex to HCV PCR, Serum (07/08/2021 10:37 AM CDT) HCV Ab Screen, S Negative Negative 07/08/2021 9:39 PM CDT [facility] Comment:Ldanir-ew-ojujbf rat io is <1.00. Blood (Blood, Venous) 07/08/2021 10:37 AM CDT 07/08/2021 2:56 PM CDT Navine Nasser-Ghodsi M.D. LAB MICROBIOLO GY - BLOOD ORDERABLES [facility] [address] [place] [address] [facility] access hospital Dept. of Laboratory Medicine and Pathology [address] [place] [address] from Last 3 Months or Most Recently Relevant to Health Maintenance Advance Directives For more information, please contact: [phone] Documents on File Type Date Recorded Patient Final Rail Cutter Expl anation Advance Directives 12/01/2022 10:57 AM Efrain Zhu HCPOA/ADVOCATE/AGENT/REP RESENTATIVE/SURROGATE Healthcare Agents on File Name Relationship Healthcare Agent Relationship Communication Efrain Estraranza Significant Other Health Care Agent Yarelis Zhu Sister First Alternate Health Care Agent Care Teams Cash Applications Associate Relationship Specialty Start Date End Date Elsewhere, Pcp PCP - General Internal Medicine 08/11/23
--- OUTSIDE RECORDS SUMMARY | 2024-07-04 14:14 | XMS_ITS | Clinical Summary ---
Author Organization [employer] [facility] Address [place], [place] [address] Care Team Providers Care Gun Club Manager Name Role Phone Ml Mcintosh DO Primary Care Provider [phone] Allergies Active Allergy Reactions Criticality Noted Date Comments Tridell Itching 09/03/2023 Body itching and tongue tingly Milk GI Upset 09/03/2023 Any dairy Iodine Itching,Rash 01/08/2021 Topical iodine only Wheat GI Upset 09/03/2023 Medications Medication Sig Dispensed Refills Start Date End Date Status cholecalciferol, Vitamin D3, (VITAMIN D-3) 5,000 unit tab tablet Take 1 tablet by mouth once daily. 0 10/05/2019 Active turmeric 400 mg cap Take by mouth. 0 10/05/2019 A ctive Ascorbate Calcium-Bioflavonoid (RUKHSANA C WITH BIOFLAVONOIDS) 500-200 mg tab Take by mouth. 0 10/05/2019 Active zinc 50 mg tablet Take 1 Tablet (50 mg) by mouth once daily. 0 02/28/2022 Active cyanocobalamin (Vitamin B-12) 1,000 mcg tablet Take 1 Tablet (1,000 mcg) by mouth once daily. 0 02/28/2022 Active medication order composer Vegan EPA/DHA 0 02/28/2022 Active Active Problems Problem Noted Date Diagnosed Date Hyperlipidemia 09/06/2023 Hypogammaglobulinemia 09/06/2023 Overview (09/06/2023): Should avoid live vaccines White coat syndrome without hypertension 023 History of compression fracture of spine 019 Osteoporosis 10/05/2019 Hepatitis B 08/28/2017 Overview (08/28/2017): While in [employer] many years ago Resolved Problems Problem Noted Date Diagnosed Date Resolved Date Elevated blood pressure read ing without diagnosis of hypertension 09/06/2023 09/06/2023 Abnormal TSH 10/05/2019 09/06/2023 Hypothyroidism (acquired) 08/28/2017 Immunizations Name Administration Dates Next Due COVID-19 Vaccine Spikevax (M oderna 50mcg/0.5mL) 12YO+ [id number] Formula PF 07/28/2023 COVID-19 vaccine (Moderna 50 mcg/0.5mL) 12YO+ BIVALENT PF, MDV 02/25/2023,08/04/2022 Influenza Virus, Unspecified 08/23/2019 Influenza, High-dose Quadriv alent Inactivated 07/28/2023,08/04/2022,08/01/2021 Influenza, IIV4 (=>6mos) MDV 07/18/2020 Influenza, Injectable, Mdck, Quadrivalent, W/preservative 08/23/2019 Pneumococcal Conj 20-valent (Prevnar 20) 023 RSV, Recombinant ADJ Reconst ituted (Arexvy 120MCG/0.5mL) 08/20/2023 Family History Medical History Relation Name Comments Cancer-colon Brother Cancer-pancreatic Father Relation Name Status Comments Brother Father Social History Tobacco Use Types Packs/Day Years Used Date Smoking Tobacco: Never Smokeless Tobacco: Never Tobacco Cessation:Counseling Given: Yes Alcohol Use Standard Drinks/Week Comments Not Currently 0 (1 standard drink = 0.6 oz pur e alcohol) PHQ-2 Answer Date Recorded PHQ-2 TOTAL SCORE 1 09/03/2023 Social Connections Answer Date Recorded Frequency of Communication with Friends and Fami ly Not on file 01/03/2022 Sex and Gender Information Value Date Recorded Sex Assigned at Not on file Gender Identity Not on file Sexual Orientation Not on file Obstetrics History Para Term AB IAB SAB Ectopic Multiple Livin g Live Births 0 0 0 0 0 0 0 0 0 0 0 Last Filed Vital Signs Vital Sign Reading Time Taken Comments Blood Pressure 164/90 11/13/2023 11:03 AM CAREER TECHNICAL COUNSELOR Pulse 82 11/13/2023 11:03 AM CAREER TECHNICAL COUNSELOR Temperature 36.9 ??C (98.5 ??F) 08/28/2017 2:34 PM CD T Respiratory Rate - - Oxygen Saturation 100% 11/13/2023 11:03 AM CAREER TECHNICAL COUNSELOR Inhaled Oxygen Concentration - - Weight 62.6 kg (138 lb) 11/13/2023 11:03 AM CAREER TECHNICAL COUNSELOR Height 149.9 cm (4' 11) 09/03/2023 1:25 PM CAREER TECHNICAL COUNSELOR Body Mass Index 27.87 09/03/2023 1:25 PM CAREER TECHNICAL COUNSELOR Plan of Treatment Health Maintenance Due Date Last Done Comments Tdap 1967 Tetanus booster 1976 Zoster (shingles) series for age 50+ (1 of 2) 2006 COVID-19 vaccine series ( season) 2024 07/28/2023, 02/25/2023, 08/04/2022, Additional history exists Influenza for age 65+ 06/26/2024 07/28/2023 , 08/04/2022, 08/01/2021, Additional history exists BMI (ht and wt on same day) for age 18+ 09/03/2024 09/03/2023, 02/28/2022, 10/05/2019, Additional history exists Depression screening for age 12+ 09/03/2024 09/03/2023 Medicare Wellness for age 65+ 09/03/2024 09/03/2023 Mammogram for age 45-75 09/16/2024 09/16/2023 Colonoscopy through age 75 11/26/202711/26 (Verified in Care Everywhere or Patient Record) Lipids for age 45-75 09/16/2028 09/16/2023, 03/06/20 Hepatitis C screening for age 18-79 Addressed 07/08/2021 (Verified in Care Everywhere or Patient Record) Overridden with the intention of not completing the topic DEXA/DXA scan for age 65+ Addressed 2022 (Verified in Care Everywhere or Patient Record), 07/08/2021 (Verified in Care Everywhere or Patient Record) Overridden with the intention of not completing the topic Pneumococcal series for age 65+ Completed 08/20/2023 Procedures Procedure Name Priority Date/Time Associated Diagnosis Comments XR MAMMO BILAT SCREENING Routine 09/16/2023 9:56 AM CAREER TECHNICAL COUNSELOR Visit for screening mammogram LIPID PANEL W REFLEX MEASURED LDL Routine 09/16/2023 9:25 AM CAREER TECHNICAL COUNSELOR Screening cholesterol level from Last 3 Months or Most Recently Relevant to Health Maintenance Results * XR MAMMO BILAT SCREENING (09/16/2023 9:56 AM CAREER TECHNICAL COUNSELOR) Anatomical Region Laterality Modality BREASTS, Breast Left, Breast Right Bilateral Mammography Impressions 09/16/2023 2:48 PM CAREER TECHNICAL COUNSELOR ??There is no radiographic evidence for malignancy. ??Recommend annual mammograms. MAMMOGRAM ASSESSMENT: ??ACR 1 Negative PATIENTS: You will also receive a letter with your examination results in an easy to read format. ??If you have questions about your results, please contact your referring provider. Narrative 09/16/2023 2:48 PM CAREER TECHNICAL COUNSELOR For Patients: As a result of the Century Cures Act, medical imaging exams and procedure reports are released immediately into your electronic medical record. You may view this report before your referring provider. If you have questions, please contact your health care provider. XR MAMMO BILAT SCREENING [[id number]] CLINICAL HISTORY: ??This is an asymptomatic 68 y.o. patient. INDICATION FOR EXAM: Mammogram Screening. TECHNIQUE: CC & MLO views were obtained. ??This study was evaluated with the assistance of Computer-Aided Detection. COMPARISON FILM: This is a baseline study. ? FINDINGS: ??The breasts are almost entirely fatty. There are no dominant masses, suspicious micro calcifications or areas of architectural distortion. Sakina CORREA MAMMO * (ABNORMAL) LIPID PANEL W REFLEX MEASURED LDL (09/16/2023 9:25 AM CAREER TECHNICAL COUNSELOR) CHOLESTEROL,TOTAL 256(H) 100 - 199 mg/dL 09/16/2023 6:03 PM CAREER TECHNICAL COUNSELOR [employer] Comment: Cholesterol, Total Reference Ranges Desirable <200 mg/dL Borderline 200-239 mg/dL High >=240 mg/dL TRIGLYCERIDES 99 <150 mg/dL 09/16/2023 6:03 PM CAREER TECHNICAL COUNSELOR [facility] HDL CHOLESTEROL 64 >40 mg/dL 6:03 PM CAREER TECHNICAL COUNSELOR [facility] [employer] [facility] NON-HDL CHOLESTEROL 192(H) <145 mg/dl 09/16/2023 6:03 PM CAREER TECHNICAL COUNSELOR [facility] CHOL/HDL RATIO 4.00 <4.50 09/16/2023 6:03 PM CAREER TECHNICAL COUNSELOR [facility] [employer] [facility] LDL CHOLESTEROL 172(H) <=130 mg/dL 09/16/2023 6:03 PM CAREER TECHNICAL COUNSELOR [facility] [employer] [facility] VLDL CHOLESTEROL 20 <=30 mg/dL 09/16/2023 6:03 PM CAREER TECHNICAL COUNSELOR [facility] [employer] [facility] PROVIDER ORDERED STATUS RANDOM 09/16/2023 6:03 PM CAREER TECHNICAL COUNSELOR [facility] [employer] [facility] Blood BLOOD SPECIMEN / Unknown Venipuncture / Unknown 09/16/2023 9:25 AM CAREER TECHNICAL COUNSELOR 09/16/2023 9:25 AM CAREER TECHNICAL COUNSELOR Sakina CORREA CHEMISTRY [facility] [employer] [facility] [address] [place] [id number], from Last 3 Months or Most Recently Relevant to Health Maintenance Care Teams Gun Club Manager Relationship Specialty Start Date End Date Ml Mcintosh DO [address] [place] [address] PCP - General Family Practice 11/13/23
--- NOTE | 2024-07-04 14:30 | CRLHL7_ITS ---
For Patients: As a result of the Century Cures Act, medical imaging exams and procedure reports are released immediately into your electronic medical record. You may view this report before your referring provider. If you have questions, please contact your health care provider. Indication: LOW BACK PAIN Technique: Noncontrast sagittal and axial T1, T2, and sagittal STIR sequences are provided. Comparison: CT 10/04/2022 Findings: There are 5 lumbar-type vertebral bodies. Exaggeration of lumbar lordosis. Acute L5 superior endplate compression fracture. Subacute superior endplate compression fractures at L2, L3, and L4. Chronic mild L1 superior endplate compression fracture. Acute T12 and T10 compression fractures. Chronic moderate-severe T11 superior endplate compression fracture. Retropulsion of the T11 posterior superior corner. The conus medullaris is normal in signal and location. Left renal cyst. T12-L1: No significant spinal canal stenosis or neural foraminal narrowing. L1-2: Retropulsion of the L2 posterior superior corner indents the thecal sac. No significant spinal canal stenosis or neural foramen narrowing. L2-3: Grade 1 anterolisthesis. Moderate facet arthrosis. No significant spinal canal stenosis or neural foraminal narrowing. L3-4: Disc desiccation. Posterior disc bulge and central disc protrusion and bilateral facet arthrosis. Moderate spinal canal stenosis. Mild right neural foraminal narrowing. No left neural foramen narrowing. L4-5: Diffuse disc bulge and central disc protrusion. Moderate facet arthrosis. Moderate subarticular recess stenosis and possible impingement of the traversing bilateral L5 nerve roots. No neural foraminal narrowing. L5-S1: Moderate facet arthrosis. No significant spinal canal stenosis or neural foramen narrowing. Impression : 1. Acute T10, T12, and L5 superior endplate compression fracture. 2. Subacute superior endplate compression fractures at L2, L3, and L4. 3. Chronic mild L1 superior endplate compression fracture. Chronic moderate-severe T11 superior endplate compression fracture. 4. At L4-5 there is moderate subarticular recess stenosis and possible impingement of the traversing bilateral L5 nerve roots. 5. At L3-4 there is moderate spinal canal stenosis and mild right neural foraminal narrowing. Dictated by Mike Cheatham MD @ 07/06/2024 1:46:41 PM (Electronically Signed)
[2024-07-04 16:22] LABS: Albumin* 4.7 g/dL (3.3-5.0)
[2024-07-04 16:23] LABS: Chloride* 102 mmol/L (96-114); Potassium* 4.9 mmol/L (3.6-5.1); Sodium* 136 mmol/L (135-149)
[2024-07-04 16:25] LABS: Anion Gap 6 mEq/L (7-15); Aspartate Amino Transferase* 27 U/L (12-35); Bilirubin Total* 1.3 mg/dL (0.1-1.5); Carbon Dioxide* 28 mmol/L (20-32); Creatinine* 0.6 mg/dL (0.5-1.5); Estimated Glomerular Filt Rate 98 ml/min
[2024-07-04 16:26] LABS: Alanine Aminotransferase* 18 U/L (4-35); Alkaline Phosphatase* 115 U/L (40-150); Blood Urea Nitrogen* 13 mg/dL (7-30); Calcium* 10.2 mg/dL (8.4-10.6); Glucose* 90 mg/dL (60-115); Total Protein* 6.8 g/dL (6.0-8.3)
[2024-07-04 16:37] LABS: PTH Intact* 22.4 pg/mL (14.2-75.2)
[2024-07-08 13:10] LABS: 25-Hydroxyvitamin D2 <1.0 ng/mL; 25-Hydroxyvitamin D2,D3 Total 44.1 ng/mL (30.0-80.0); 25-Hydroxyvitamin D3 44.1 ng/mL
== END 2024-07-04 14:07 | disposition home or self-care (01) ==
PROVIDERS: Visit Provider Family Medicine
DX: M54.50 Low back pain, unspecified (principal); M48.54XA Collapsed vertebra, not elsewhere classified, thoracic region, initial encounter for fracture; M48.56XA Collapsed vertebra, not elsewhere classified, lumbar region, initial encounter for fracture; M48.061 Spinal stenosis, lumbar region without neurogenic claudication; M81.0 Age-related osteoporosis without current pathological fracture
CPT/HCPCS: 36415; 72148; 80053; 82306; 83970; 84443

== ENCOUNTER 2024-10-20 13:42 | Outpatient (CLI) | payer MEDICARE, OTHER, SELFPAY ==
--- NOTE | 2024-10-20 14:00 | XR_ITS ---
Patient: DARIANA COLIN Facility:?[facility] Patient ID:?[id number] Site Patient ID:?[id number]. Site :?[id number] Study:?DEXA-Bone Density Ning/ ad hips-10/21/2024 9:39:10 AM Ordering Physician:?VANESSA ROSE Final Report: XR DXA Bone Mineral Density (BMD) Reason for exam: Follow-up osteoporosis. Current height (in): 58. Weight (lb): 132. Menopause age: 46. Ethnicity: White. 1. Have you had a previous hip or vertebral fracture? Yes. 2. Have you had any fractures during your adult life which did not result from significant trauma (e.g., auto accident)? Yes. 3. Did either of your parents have a hip fracture? No. 4. Do you smoke? No. 5. Have you ever taken Glucocorticoids? No. 6. Do you have rheumatoid arthritis? No. 7. Do you have secondary osteoporosis? No. 8. Do you drink 3 or more alcoholic drinks per day? No. 9. Are you being treated for osteoporosis? Yes. 10. Have you ever taken any of the following medications: Actonel, Evista, Fosamax, Miacalcin, Reclast, Boniva, Forteo, HRT (i.e. estrogen/hormone therapy), Protelos, Prolia, Vitamin D, Calcium, other ? please specify. ANSWER: Yes, vitamin D. 11. Do you have any of the following medical conditions: Anorexia or bulimia, asthma or emphysema, end stage renal disease, hyperparathyroidism, any seizure disorders, cancer, inflammatory bowel diseases, hysterectomy, other ? please specify. ANSWER: Yes, skin cancer. 12. What was your maximum height (inches)? 62. 13. Do you perform weight bearing exercise regularly? Yes. 14. Do you regularly consume dairy products? No. 15. Do you drink caffeinated beverages? Yes. 16. At what age did your period start? 17. 17. Are you premenopausal? No. 18. How many full term pregnancies have you had? Zero. 19. Have you ever missed your period for more than 6 months in a row (not including or menopause)? No. TECHNIQUE: Bone mineral density study was performed using the [employer]. FINDINGS: The results of the study expressed as bone mineral density (BMD) are as follows: Lumbar spine L1 to L4: BMD: 0.615 g/cm2. T-score: -3.9. Z-score: -1.9. Neck Left: BMD: 0.476 g/cm2. T-score: -3.4. Z-score: -1.7. Right: BMD: 0.466 g/cm2. T-score: -3.5. Z-score: -1.8. Total Left: BMD: 0.561 g/cm2. T-score: -3.1. Z-score: -1.7. Right: BMD: 0.588 g/cm2. T-score: -2.9. Z-score: -1.5. IMPRESSION: Osteoporosis. *Comparison exams done prior to 03/2020 were performed on different unit, [employer]. COMPARISON: Compared with scan of 06/05/2021, the bone mineral density has decreased by 6.7 percent at the spine and decreased by 11.3 percent at the hip. Mike Dawson M.D. Diagnostic Radiologist [email or web address] [email or web address]/[email or web address] / bM/Dictated by: Mike Dawson MD @ 10/21/2024 9:53:00 AM Signed by:?Miek aDwson MD @10/21/2024 8:21:10 PM (Electronic Signature)
== END 2024-10-20 13:43 | disposition home or self-care (01) ==
LOC: RAD 13:44
PROVIDERS: Visit Provider Family Medicine
DX: M81.0 Age-related osteoporosis without current pathological fracture (principal)
CPT/HCPCS: 77080

== ENCOUNTER 2024-10-27 12:30 | Outpatient (RCR) | payer MEDICARE, OTHER, SELFPAY ==
--- NOTE | 2024-09-20 14:35 | PT.OPEX ---
[facility] PT [facility] Outpatient Eval Start: 09/20/24 07:59 Freq: Status: Active Protocol: Document 09/20/24 08:00 CRP (Rec: 09/20/24 14:35 CRP [id number]) E-signed By Speedy Serna PT Physical Therapy Outpatient Evaluation Insurance Information Recert Due Date 12/19/24 Insurance Name Medicare B Medical Diagnosis Multi level thoracic and lumbar compression fx Referring MD Dr Joseph Subjective Subjective Nereida she must have over done it in the yard and ended up with compression fxs. She has had other compression fxs dating back 5 years ago. Pt had severe pain with everything initially. Now she is pain free with sitting and lying down. Can only stand or walk for 5 minutes and then low back pain that is severe at the mid thoracic spine. No pain wrapping around the ribs , no UE pain, no low back pain . Mild numb and sore just above R knee. About 4-5 times a day she is walking 5 min. Does do some stretching/ROM exer that does not seem to cause pain. Current Work Status Retired Objective Other/Pertinent Objective Trunk ROM: Flex WFL to allow for sit to stand and sit<> supine. Otherwise not tested. Ext mod/ciera dec, Posture: Increased thoracic kyphosis. L thoracic scoliosis. Palpation: palpable pain T8-11 bilat paraspinals Gait: Pain noted within 5 minutes. Shows increased thoracic kyphosis and trunk lean. SLS: 25 sec bilat Hip ROM WNL bilat SLR negative bilat MMT: LE myotomes WNL. Bilat hip ext 4-/5. Poor lumbopelvic motor control. Assessment Assessment/Impression Pt presents to the clinic with recent thoracic compression fx as well as past hx of lumbar and thoracic spine compression fractures. Pt shows general postural dysfunction and trunk weakness that are feeding into ongoing wt bearing pain with standing and walking. Skilled PT is necessary to safely improve functional strength and mobility by incorporating ther ex, nm isac, manual therapy and pt education. Plan of Care Rehabilitation Potential Good Physical Therapy Goals 1. Pt will be independent with HEP in 8 weeks. 2. Pt will stand to do cook and do dishes for 30-45 minutes at a time with 75% decrease in pain in 12 weeks. 3. Pt will walk for exer x 15 minutes with 75% decrease in pain in 12 weeks. Coordination/Communication With Referral Source Treatment Plan/Direct Interventions Gait Training,Manual Therapy, Neuromuscular Re-ed,Self-Care/ Home Management,Therapeutic Activities,Therapeutic Exercises Frequency/Duration 1-2x/wk for 12 weeks Patient Will Be Discharged From Therapy Completion of LTG(s),Skills Plateau,Independent w/HEP, Independently Progressing Evaluation Billing Untimed Code Treatment Minutes 40 Complexity Moderate Certification Information Initial Certification Date 09/20/24 Ending Certification Date 12/19/24 Provider Signature Required Yes Provider Signature Shows Agreement With POC & Medical Necessity Physician NPI Number Write NPI# Here Physician Comment/Change : Physician Signature & Date Requested Please Sign/Date Here
== END 2025-02-24 23:59 | disposition home or self-care (01) ==
PROVIDERS: PCP Family Medicine; Visit Provider Family Medicine
DX: M48.56XA Collapsed vertebra, not elsewhere classified, lumbar region, initial encounter for fracture (principal); Z51.89 Encounter for other specified aftercare
CPT/HCPCS: 97110; 97140; 97162

== ENCOUNTER 2025-07-04 11:28 | Outpatient (CLI) | payer MEDICARE, OTHER, SELFPAY ==
--- NOTE | 2025-07-04 12:32 | P.ANES_ITS ---
Anesthesia Charges Start Date/Time Anesthesia Start Date: 07/04/25 Anesthesia Start Time: 12:04 Stop Date/Time Anesthesia Stop Date: 07/04/25 Anesthesia Stop Time: 12:17 Coding CPT Codes CPT Codes: ANES UPR GI NDSC PX NOS - 20471 ([id number]) P2 - PATIENT W/MILD SYST DISEASE, QK - INFECTIOUS DISEASE TECHNICIAN 2-4 CNCRNT ANES PROC, QX - CARDIAC CARE UNIT NURSE SVC W/ MD MED DIRECTION
--- NOTE | 2025-07-04 12:32 | P.ANES_ITS ---
Anesthesia Charges Start Date/Time Anesthesia Start Date: 07/04/25 Anesthesia Start Time: 12:04 Stop Date/Time Anesthesia Stop Date: 07/04/25 Anesthesia Stop Time: 12:17 Coding CPT Codes CPT Codes: ANES UPR GI NDSC PX NOS - [id number] ([id number]) P2 - PATIENT W/MILD SYST DISEASE, QK - RETOUCHER PHOTOENGRAVING 2-4 CNCRNT ANES PROC
--- NOTE | 2025-07-04 12:32 | W.ANESCHARGE ---
Anesthesia Charges Start Date/Time Anesthesia Start Date: 07/04/25 Anesthesia Start Time: 12:04 Stop Date/Time Anesthesia Stop Date: 07/04/25 Anesthesia Stop Time: 12:17 Coding CPT Codes CPT Codes: ANES UPR GI NDSC PX NOS - [id number] ([id number]) P2 - PATIENT W/MILD SYST DISEASE, QK - SENIOR MECHANICAL TECHNICIAN 2-4 CNCRNT ANES PROC, QX - STRUCTURAL STEEL WORKER HELPER SVC W/ MD MED DIRECTION
--- NOTE | 2025-07-04 12:32 | W.ANESCHARGE ---
Anesthesia Charges Start Date/Time Anesthesia Start Date: 07/04/25 Anesthesia Start Time: 12:04 Stop Date/Time Anesthesia Stop Date: 07/04/25 Anesthesia Stop Time: 12:17 Coding CPT Codes CPT Codes: ANES UPR GI NDSC PX NOS - [id number] ([id number]) P2 - PATIENT W/MILD SYST DISEASE, QK - SCANNING TECH 2-4 CNCRNT ANES PROC
== END 2025-07-04 11:29 | disposition home or self-care (01) ==
LOC: OP CLINIC 11:31
PROVIDERS: PCP Nurse Practitioner Family; Visit Provider Surgery
DX: R13.10 Dysphagia, unspecified (principal); K44.9 Diaphragmatic hernia without obstruction or gangrene
CPT/HCPCS: 00731; 43235; J2704; J3490